=== PATIENT | female | born 1950 | race Caucasian/White ===

== ENCOUNTER 2019-05-29 12:07 | Emergency (ER) | payer MEDICARE ==
[~2019-05-29] VITALS: Ht 152.4 cm; Wt 81.7 kg
[2019-05-29] MEDS ORDERED: PARO10 PO (12:35)
[2019-05-29] MEDS ORDERED: VERA120ERB PO (12:36)
[2019-05-29] MEDS ORDERED: AMLO10 PO (12:36)
[2019-05-29] MEDS ORDERED: OXYC5 (12:36)
[2019-05-29] MEDS ORDERED: ONDA4ODT MM (15:22)
[2019-05-29] MEDS ORDERED: Percocet 10-321 EACH PO (15:22)
== END 2019-05-29 15:48 | disposition home or self-care (01) ==
LOC: ER 12:07
DX: M25.511 Pain in right shoulder (principal); V49.9XXA Car occupant (driver) (passenger) injured in unspecified traffic accident, initial encounter; Z79.899 Other long term (current) drug therapy; Z79.891 Long term (current) use of opiate analgesic; I10 Essential (primary) hypertension; F17.200 Nicotine dependence, unspecified, uncomplicated
CPT/HCPCS: 71046; 73030; 99284-25